=== PATIENT | female | born 1990 | race Caucasian/White ===

== ENCOUNTER → 2021-06-19 | Outpatient (REF) | LOC: M LAB LCGH 12:34 | PROVIDERS: ATTEND Obstetrics & Gynecology Reproductive Endocrinology | DX: Z00.00 Encounter for general adult medical examination without abnormal findings (principal) ==

== ENCOUNTER → 2021-06-21 | Outpatient (REF) | LOC: M LAB LCGH 10:46 | PROVIDERS: ATTEND Obstetrics & Gynecology Reproductive Endocrinology | DX: Z51.81 Encounter for therapeutic drug level monitoring (principal) ==

== ENCOUNTER → 2021-06-24 | Outpatient (REF) | LOC: M LAB LCGH 10:20 | PROVIDERS: ATTEND Obstetrics & Gynecology Reproductive Endocrinology | DX: Z00.00 Encounter for general adult medical examination without abnormal findings (principal) ==

== ENCOUNTER → 2021-08-06 | Outpatient (REF) | LOC: M LAB LCGH 12:12 | PROVIDERS: ATTEND Obstetrics & Gynecology Reproductive Endocrinology | DX: Z00.00 Encounter for general adult medical examination without abnormal findings (principal) ==

== ENCOUNTER → 2021-08-13 | Outpatient (REF) | LOC: M LAB LCGH 10:29 | PROVIDERS: ATTEND Obstetrics & Gynecology Reproductive Endocrinology | DX: Z00.00 Encounter for general adult medical examination without abnormal findings (principal) ==

== ENCOUNTER → 2021-08-26 | Outpatient (REF) | LOC: M LAB LCGH 10:29 | PROVIDERS: ATTEND Obstetrics & Gynecology Reproductive Endocrinology | DX: Z00.00 Encounter for general adult medical examination without abnormal findings (principal) ==

== ENCOUNTER → 2021-09-03 | Outpatient (REF) | LOC: M LAB LCGH 10:32 | DX: Z00.00 Encounter for general adult medical examination without abnormal findings (principal) ==

== ENCOUNTER → 2021-09-10 | Outpatient (REF) | LOC: M LAB LCGH 11:09 | PROVIDERS: ATTEND Obstetrics & Gynecology Reproductive Endocrinology | DX: Z00.00 Encounter for general adult medical examination without abnormal findings (principal) ==

== ENCOUNTER → 2021-09-17 | Outpatient (REF) | LOC: M LAB LCGH 10:41 | PROVIDERS: ATTEND Obstetrics & Gynecology Reproductive Endocrinology | DX: Z00.00 Encounter for general adult medical examination without abnormal findings (principal) ==

== ENCOUNTER → 2022-04-09 | Outpatient (REF) | payer BC | LOC: M SFHCWAGY 17:21 | PROVIDERS: ATTEND Specialist | DX: Z34.83 Encounter for supervision of other normal pregnancy, third trimester (principal) ==

== ENCOUNTER → 2022-04-09 | Outpatient (CLI) | payer BC | LOC: M WHC 10:56 | PROVIDERS: ATTEND Specialist | DX: O44.20 Partial placenta previa NOS or without hemorrhage, unspecified trimester (principal) ==

== ENCOUNTER → 2022-04-09 | Outpatient (REF) | payer BC | LOC: M PLALAB 11:31 | PROVIDERS: ATTEND Specialist | DX: Z34.83 Encounter for supervision of other normal pregnancy, third trimester (principal) ==

== ENCOUNTER → 2025-02-03 | Outpatient (REF) | payer BC ==
[~2025-02-03] MED LIST: PRENTAB9 PO
== END ==
LOC: M SFHCDERM 13:20
PROVIDERS: ATTEND Physician Assistant
DX: D22.5 Melanocytic nevi of trunk (principal)